=== PATIENT | female | born 1940 | race Caucasian/White ===

== ENCOUNTER 2022-01-04 06:03 | Inpatient (IN) ==
[~2022-01-04 06:03] MED LIST: Buffered Lidocaine 1% SYRIN 1 ml INTRADERM ONE; Lactated Ringers 1000 ml BAG 1,000 ML IV SCH
[2022-01-04] MEDS ORDERED: ceFAZolin 2 GM in NS PREMIX 2 GM/100 ML BAG IVPB ONE (06:22)
[2022-01-04] MEDS ORDERED: Midazolam 2 mg/2 ml VIAL 1 mg/ml 2 ml VIAL (2 mg) ONE (07:02)
[2022-01-04] MEDS ORDERED: fentaNYL 100 mcg/2 ml 50 MCG/ML VIAL ONE ×2 (07:02→14:07)
[2022-01-04] MEDS ORDERED: Bupivacaine 0.25% EPI 200,000 30 ML SDV ONE (07:03)
[2022-01-04] MEDS ORDERED: ceFAZolin VIAL VIAL ONE ×3 (07:03→13:04)
[2022-01-04] MEDS ORDERED: EPHEDrine (Pressors) 50 MG/ML VIAL ONE (07:04)
[2022-01-04] MEDS ORDERED: Sevoflurane BOTTLE ONE (07:04)
[2022-01-04] MEDS ORDERED: Sterile Water for Inj 10 ML ONE (07:04)
[2022-01-04] MEDS ORDERED: Propofol 10 MG/ML 20 ML BTL ONE (07:04)
[2022-01-04] MEDS ORDERED: Phenylephrine 40 mcg/mL 10mL (400mcg) SYRINGE ONE (07:04)
[2022-01-04] MEDS ORDERED: Lidocaine 2% PF 5 ML VIAL ONE (07:04)
[2022-01-04] MEDS ORDERED: Dexamethasone IV 4 MG/ML VIAL 1 ml VIAL ONE (07:04)
[2022-01-04] MEDS ORDERED: Ondansetron 4 mg VIAL 2 MG/ML 2 ml VIAL ONE ×3 (07:04→14:42)
[2022-01-04] MEDS ORDERED: Remifentanil 2 MG VIAL ONE (07:06)
[2022-01-04] MEDS ORDERED: Propofol 10 mg/ml 100 ML BTL 300 ML ONE (07:06)
[2022-01-04] MEDS ORDERED: Succinylcholine 200 mg VIAL 20 mg/ml 10 ml VIAL (200 mg) ONE (07:44)
[2022-01-04] MEDS ORDERED: Ketamine HCL 50 mg/ml 10 ml VIAL (500 MG) ONE (07:48)
[2022-01-04] MEDS ORDERED: Ondansetron 4 mg VIAL 2 MG/ML 2 ml VIAL IV PRN ×2 (07:49→15:57)
[2022-01-04] MEDS ORDERED: Naloxone 0.4 mg VIAL 0.4 mg/ml 1 ml VIAL IV PRN (07:49)
[2022-01-04] MEDS ORDERED: Vancomycin 1,000 MG VIAL ONE (09:36)
[2022-01-04] MEDS ORDERED: HYDROmorphone 0.5 MG/0.5 ML SYRINGE ONE ×3 (10:00→12:34)
[2022-01-04] MEDS: fentaNYL 100 mcg/2 ml 50 MCG/ML VIAL IV PRN ×4 (14:08→14:58)
[2022-01-04] MEDS ORDERED: HYDROmorphone 1 MG/1 ML SYRINGE ONE (14:30)
[2022-01-04] MEDS: HYDROmorphone 1 MG/1 ML SYRINGE IV PRN ×2 (14:39→15:29)
[2022-01-04] MEDS ORDERED: hydrALAZINE 20 mg/ml 1 ML Vial IV ONE (15:26)
[2022-01-04] MEDS: HYDROcodone/ACETAMIN 5/325 mg TAB PO PRN (19:43)
[2022-01-04 23:09] LABS: Urine Appearance Cloudy; Urine Bilirubin Negative (Negative); Urine Blood 1+ (Negative); Urine Color Yellow; Urine Glucose Negative (Negative); Urine Ketones Trace (Negative); Urine Nitrite Negative (Negative); Urine Protein Negative (Negative); Urine Specific Gravity 1.015 (1.002-1.030); Urine Urobilinogen Negative (Negative)
[2022-01-04 23:11] LABS: Urine Bacteria Absent (Absent); Urine Red Blood Cell 1+(3-5/hpf) (Absent); Urine Squamous Epithelial Cell Present (Absent); Urine White Blood Cell Absent (Absent)
[2022-01-05] MEDS: HYDROcodone/ACETAMIN 5/325 mg TAB PO PRN ×5 (01:39→20:44)
[2022-01-05 08:19] LABS: ABS Lymphocytes 1.9 10^3/ul (1.0-4.8); ABS Monocytes 1.1 10^3/ul (0-0.8); ABS Neutrophils 11.1 10^3/ul (1.5-7.7); Eosinophil % 0.2 %; Hematocrit 33 % (35-47); Hemoglobin 11.2 g/dL (12.0-16.0); Lymphocyte % 13.2 %; Mean Corpuscular HGB Conc 34 g/dL (31-36); Mean Corpuscular Hemoglobin 33 pg (27-31); Mean Corpuscular Volume 96 fL (80-97); Mean Platelet Volume 9.2 fL (7.4-10.4); Platelet Count 224 10^3/uL (150-450); Red Blood Count 3.43 10^6 /uL (3.70-4.87); Red Cell Distribution Width 13 % (10-15); White Blood Count 14.2 10^3/uL (3.5-10.8)
[2022-01-05 09:02] LABS: Calcium 9.3 mg/dL (8.6-10.3); Potassium 4.3 mmol/L (3.5-5.0)
[2022-01-06] MEDS: HYDROcodone/ACETAMIN 5/325 mg TAB PO PRN ×5 (02:35→23:00)
[2022-01-06 05:53] LABS: ABS Lymphocytes 2.1 10^3/ul (1.0-4.8); ABS Monocytes 1.4 10^3/ul (0-0.8); ABS Neutrophils 12.6 10^3/ul (1.5-7.7); Eosinophil % 0.2 %; Hematocrit 30 % (35-47); Lymphocyte % 13.1 %; Mean Corpuscular HGB Conc 34 g/dL (31-36); Mean Corpuscular Hemoglobin 32 pg (27-31); Mean Corpuscular Volume 96 fL (80-97); Mean Platelet Volume 8.9 fL (7.4-10.4); Platelet Count 194 10^3/uL (150-450); Red Blood Count 3.09 10^6 /uL (3.70-4.87); Red Cell Distribution Width 13 % (10-15); White Blood Count 16.2 10^3/uL (3.5-10.8)
[2022-01-06 06:54] LABS: Calcium 8.8 mg/dL (8.6-10.3); Potassium 4.5 mmol/L (3.5-5.0); eGFR CKD-EPI 43.8 (>60)
[2022-01-07] MEDS: HYDROcodone/ACETAMIN 5/325 mg TAB PO PRN ×5 (04:16→21:24)
[2022-01-07] MEDS: Morphine 2 MG/ML SYRINGE IV SCH ×2 (14:02→17:20)
[2022-01-07] MEDS ORDERED: Morphine 2 MG/ML SYRINGE IV ONE (17:59)
[2022-01-08] MEDS: HYDROcodone/ACETAMIN 5/325 mg TAB PO PRN ×6 (01:14→21:36)
[2022-01-08 04:52] LABS: ABS Eosinophils 0.3 10^3/ul (0-0.6); ABS Lymphocytes 2.2 10^3/ul (1.0-4.8); ABS Monocytes 0.9 10^3/ul (0-0.8); ABS Neutrophils 8.6 10^3/ul (1.5-7.7); Eosinophil % 2.5 %; Hematocrit 30 % (35-47); Hemoglobin 10.2 g/dL (12.0-16.0); Lymphocyte % 18.4 %; Mean Corpuscular HGB Conc 34 g/dL (31-36); Mean Corpuscular Hemoglobin 33 pg (27-31); Mean Corpuscular Volume 97 fL (80-97); Mean Platelet Volume 8.7 fL (7.4-10.4); Platelet Count 221 10^3/uL (150-450); Red Blood Count 3.15 10^6 /uL (3.70-4.87); Red Cell Distribution Width 14 % (10-15); White Blood Count 12.1 10^3/uL (3.5-10.8)
[2022-01-08] MEDS ORDERED: Polyethylene Glycol 3350 17 GM PACKET PO PRN (20:22)
[2022-01-08] MEDS: Senna TAB 8.6 mg TAB PO PRN (21:36)
[2022-01-09] MEDS: HYDROcodone/ACETAMIN 5/325 mg TAB PO PRN ×5 (01:40→17:44)
[2022-01-09] MEDS: Magnesium Hydroxide LIQ 30 ML UDC PO PRN (09:49)
[2022-01-09] MEDS: Senna TAB 8.6 mg TAB PO PRN (21:57)
[2022-01-10] MEDS ORDERED: HYDROcodone/ACETAMIN 5/325 mg TAB PO PRN (07:38)
[2022-01-10] MEDS: HYDROcodone/ACETAMIN 5/325 mg TAB PO PRN ×2 (08:30→12:24)
[2022-01-10] MEDS: Magnesium Hydroxide LIQ 30 ML UDC PO PRN (08:30)
[2022-01-10 09:33] LABS: ABS Basophils 0.1 10^3/ul (0-0.2); ABS Eosinophils 0.3 10^3/ul (0-0.6); ABS Lymphocytes 1.9 10^3/ul (1.0-4.8); ABS Monocytes 0.9 10^3/ul (0-0.8); ABS Neutrophils 6.2 10^3/ul (1.5-7.7); Eosinophil % 3.5 %; Hematocrit 32 % (35-47); Hemoglobin 10.9 g/dL (12.0-16.0); Lymphocyte % 20.4 %; Mean Corpuscular HGB Conc 34 g/dL (31-36); Mean Corpuscular Hemoglobin 33 pg (27-31); Mean Corpuscular Volume 96 fL (80-97); Mean Platelet Volume 8.1 fL (7.4-10.4); Platelet Count 294 10^3/uL (150-450); Red Blood Count 3.36 10^6 /uL (3.70-4.87); Red Cell Distribution Width 13 % (10-15); White Blood Count 9.5 10^3/uL (3.5-10.8)
[2022-01-10 09:51] LABS: Calcium 9.4 mg/dL (8.6-10.3); Potassium 4.4 mmol/L (3.5-5.0); eGFR CKD-EPI 46.5 (>60)
[2022-01-10 11:33] VITALS: BP 113/67
[2022-01-10 12:10] LABS: Rapid COVID-19 Molecular Undetected (Undetected)
== END 2022-01-10 14:30 | disposition home health service (06) | DRG 473 ==
LOC: INTOOBSV 06:03 → OBSVTOIN 06:03 → AA 06:03 → SSU 16:55
PROVIDERS: ADMIT Neurological Surgery; ATTEND Neurological Surgery

== ENCOUNTER 2022-01-31 14:30 | Inpatient (IN) ==
[2022-01-31 16:29] LABS: ABS Basophils 0.1 10^3/ul (0-0.2); ABS Eosinophils 0.3 10^3/ul (0-0.6); ABS Lymphocytes 1.8 10^3/ul (1.0-4.8); ABS Monocytes 0.8 10^3/ul (0-0.8); ABS Neutrophils 7.5 10^3/ul (1.5-7.7); Eosinophil % 3.1 %; Hematocrit 32 % (35-47); Hemoglobin 10.7 g/dL (12.0-16.0); Lymphocyte % 17.3 %; Mean Corpuscular HGB Conc 34 g/dL (31-36); Mean Corpuscular Hemoglobin 32 pg (27-31); Mean Corpuscular Volume 96 fL (80-97); Mean Platelet Volume 8.3 fL (7.4-10.4); Platelet Count 329 10^3/uL (150-450); Red Blood Count 3.32 10^6 /uL (3.70-4.87); Red Cell Distribution Width 13 % (10-15); White Blood Count 10.6 10^3/uL (3.5-10.8)
[2022-01-31 16:51] LABS: Activated Partial Thrombo Time 28.7 seconds (26.0-38.0); INR 1.01 (0.86-1.15)
[2022-01-31 17:12] LABS: Albumin 3.6 g/dL (3.2-5.2); Albumin/Globulin Ratio 1.4 (1-3); C Reactive Protein 6.17 mg/L (<8.01); Calcium 9.3 mg/dL (8.6-10.3); Globulin 2.6 g/dL (2-4); Potassium 4.5 mmol/L (3.5-5.0); Total Bilirubin 0.3 mg/dL (0.2-1.0); Total Protein 6.2 g/dL (6.4-8.9); eGFR CKD-EPI 29.5 (>60)
[2022-01-31] MEDS ORDERED: HYDROcodone/ACETAMIN 5/325 mg TAB PO ONE (17:55)
[2022-01-31] MEDS ORDERED: Ondansetron 4 mg VIAL 2 MG/ML 2 ml VIAL IV PRN (17:59)
[2022-01-31] MEDS ORDERED: NS 0.9% 1000 ml BAG 1,000 ML IV SCH (18:00)
[2022-01-31] MEDS ORDERED: Morphine 2 MG/ML SYRINGE IV PRN (18:01)
[2022-01-31] MEDS ORDERED: ceFAZolin VIAL 1 GM in NS 0.9% 50 ML 50 ML IVPB ONE (19:00)
[2022-01-31 20:15] LABS: Ferritin 214.8 ng/mL (11-307)
[2022-02-01] MEDS: HYDROcodone/ACETAMIN 5/325 mg TAB PO PRN (00:49)
[2022-02-01] MEDS: ceFAZolin VIAL 1 GM in NS 0.9% 50 ML 50 ML IVPB SCH ×3 (03:22→21:31)
[2022-02-01 07:10] LABS: ABS Basophils 0.1 10^3/ul (0-0.2); ABS Eosinophils 0.4 10^3/ul (0-0.6); ABS Lymphocytes 2.1 10^3/ul (1.0-4.8); ABS Monocytes 0.8 10^3/ul (0-0.8); ABS Neutrophils 5.8 10^3/ul (1.5-7.7); Eosinophil % 4.8 %; Hematocrit 32 % (35-47); Hemoglobin 10.7 g/dL (12.0-16.0); Mean Corpuscular HGB Conc 33 g/dL (31-36); Mean Corpuscular Hemoglobin 32 pg (27-31); Mean Corpuscular Volume 96 fL (80-97); Mean Platelet Volume 8.4 fL (7.4-10.4); Platelet Count 310 10^3/uL (150-450); Red Blood Count 3.32 10^6 /uL (3.70-4.87); Red Cell Distribution Width 13 % (10-15); White Blood Count 9.2 10^3/uL (3.5-10.8)
[2022-02-01 07:31] LABS: Calcium 9.3 mg/dL (8.6-10.3); Potassium 4.6 mmol/L (3.5-5.0); eGFR CKD-EPI 30.7 (>60)
[2022-02-01] MEDS ORDERED: Acetaminophen IV 1 GM/100ML 100 ML IV PRN (08:28)
[2022-02-01] MEDS ORDERED: Morphine 2 MG/ML SYRINGE IV PRN ×3 (08:29→19:57)
[2022-02-01] MEDS ORDERED: Propofol 10 MG/ML 20 ML BTL ONE (13:21)
[2022-02-01] MEDS ORDERED: fentaNYL 100 mcg/2 ml 50 MCG/ML VIAL ONE ×3 (13:21→17:57)
[2022-02-01] MEDS ORDERED: Midazolam 2 mg/2 ml VIAL 1 mg/ml 2 ml VIAL (2 mg) ONE (13:21)
[2022-02-01] MEDS ORDERED: Rocuronium 50 mg VIAL 10 mg/ml 5 ml VIAL (50 mg) ONE (13:21)
[2022-02-01] MEDS ORDERED: Lidocaine 2% PF 5 ML VIAL ONE (13:22)
[2022-02-01] MEDS ORDERED: HYDROcodone/ACETAMIN 5/325 mg TAB PO PRN (13:56)
[2022-02-01] MEDS ORDERED: oxyCODONE/Acetamin 5/325 mg TAB PO PRN (13:56)
[2022-02-01] MEDS ORDERED: Prochlorperazine 5 mg/ml 2 ml VIAL (10 mg) IV PRN (13:56)
[2022-02-01] MEDS ORDERED: Naloxone 0.4 mg VIAL 0.4 mg/ml 1 ml VIAL IV PRN (13:56)
[2022-02-01] MEDS ORDERED: Vancomycin 1,000 MG - ED ONCE IVPB ONE (14:00)
[2022-02-01] MEDS ORDERED: Desflurane 240 ML INH ONE (16:15)
[2022-02-01] MEDS: fentaNYL 100 mcg/2 ml 50 MCG/ML VIAL IV PRN ×4 (17:36→18:19)
[2022-02-01] MEDS ORDERED: HYDROcodone/ACETAMIN 5/325 mg TAB ONE (18:25)
[2022-02-02] MEDS: HYDROcodone/ACETAMIN 5/325 mg TAB PO PRN ×4 (01:49→19:48)
[2022-02-02] MEDS: ceFAZolin VIAL 1 GM in NS 0.9% 50 ML 50 ML IVPB SCH ×3 (03:38→19:41)
[2022-02-02 05:46] LABS: ABS Basophils 0.1 10^3/ul (0-0.2); ABS Eosinophils 0.6 10^3/ul (0-0.6); ABS Lymphocytes 1.8 10^3/ul (1.0-4.8); ABS Monocytes 0.7 10^3/ul (0-0.8); ABS Neutrophils 6.6 10^3/ul (1.5-7.7); Eosinophil % 6.1 %; Hematocrit 28 % (35-47); Hemoglobin 9.5 g/dL (12.0-16.0); Lymphocyte % 18.4 %; Mean Corpuscular HGB Conc 34 g/dL (31-36); Mean Corpuscular Hemoglobin 32 pg (27-31); Mean Corpuscular Volume 96 fL (80-97); Mean Platelet Volume 8.1 fL (7.4-10.4); Platelet Count 256 10^3/uL (150-450); Red Blood Count 2.94 10^6 /uL (3.70-4.87); Red Cell Distribution Width 13 % (10-15); White Blood Count 9.8 10^3/uL (3.5-10.8)
[2022-02-02 06:11] LABS: Calcium 8.7 mg/dL (8.6-10.3); Magnesium 2.2 mg/dL (1.9-2.7); eGFR CKD-EPI 33.9 (>60)
[2022-02-02 06:13] LABS: Potassium 5.3 mmol/L (3.5-5.0)
[2022-02-02] MEDS ORDERED: Polyethylene Glycol 3350 17 GM PACKET PO PRN (09:51)
[2022-02-03] MEDS: HYDROcodone/ACETAMIN 5/325 mg TAB PO PRN ×4 (01:52→20:27)
[2022-02-03] MEDS: ceFAZolin VIAL 1 GM in NS 0.9% 50 ML 50 ML IVPB SCH ×3 (03:19→20:26)
[2022-02-03 05:29] LABS: ABS Basophils 0.1 10^3/ul (0-0.2); ABS Eosinophils 0.7 10^3/ul (0-0.6); ABS Lymphocytes 2.2 10^3/ul (1.0-4.8); ABS Monocytes 0.7 10^3/ul (0-0.8); ABS Neutrophils 5.8 10^3/ul (1.5-7.7); Eosinophil % 7.4 %; Hematocrit 30 % (35-47); Lymphocyte % 23.4 %; Mean Corpuscular HGB Conc 33 g/dL (31-36); Mean Corpuscular Hemoglobin 32 pg (27-31); Mean Corpuscular Volume 96 fL (80-97); Mean Platelet Volume 8.3 fL (7.4-10.4); Platelet Count 256 10^3/uL (150-450); Red Blood Count 3.15 10^6 /uL (3.70-4.87); Red Cell Distribution Width 13 % (10-15); White Blood Count 9.5 10^3/uL (3.5-10.8)
[2022-02-03 06:12] LABS: Calcium 8.9 mg/dL (8.6-10.3); Potassium 4.5 mmol/L (3.5-5.0); eGFR CKD-EPI 39.3 (>60)
[2022-02-03] MEDS: Enoxaparin 40 MG/0.4 ML SYR SUBCUT SCH (09:22)
[2022-02-04] MEDS: HYDROcodone/ACETAMIN 5/325 mg TAB PO PRN ×4 (00:57→20:27)
[2022-02-04] MEDS: ceFAZolin VIAL 1 GM in NS 0.9% 50 ML 50 ML IVPB SCH ×3 (04:22→19:32)
[2022-02-04 05:36] LABS: Hematocrit 30 % (35-47); Hemoglobin 9.6 g/dL (12.0-16.0); Mean Corpuscular HGB Conc 32 g/dL (31-36); Mean Corpuscular Hemoglobin 31 pg (27-31); Mean Corpuscular Volume 96 fL (80-97); Mean Platelet Volume 8.8 fL (7.4-10.4); Platelet Count 249 10^3/uL (150-450); Red Blood Count 3.09 10^6 /uL (3.70-4.87); Red Cell Distribution Width 13 % (10-15); White Blood Count 8.7 10^3/uL (3.5-10.8)
[2022-02-04 05:55] LABS: Calcium 8.5 mg/dL (8.6-10.3); Potassium 4.4 mmol/L (3.5-5.0); eGFR CKD-EPI 50.6 (>60)
[2022-02-04] MEDS: Enoxaparin 40 MG/0.4 ML SYR SUBCUT SCH (09:45)
[2022-02-05] MEDS: ceFAZolin VIAL 1 GM in NS 0.9% 50 ML 50 ML IVPB SCH ×3 (03:22→19:30)
[2022-02-05] MEDS: HYDROcodone/ACETAMIN 5/325 mg TAB PO PRN ×3 (08:24→21:07)
[2022-02-05] MEDS: Enoxaparin 40 MG/0.4 ML SYR SUBCUT SCH (10:46)
[2022-02-06] MEDS: ceFAZolin VIAL 1 GM in NS 0.9% 50 ML 50 ML IVPB SCH ×2 (03:33→10:54)
[2022-02-06] MEDS: HYDROcodone/ACETAMIN 5/325 mg TAB PO PRN ×3 (03:39→12:25)
[2022-02-06] MEDS: Enoxaparin 40 MG/0.4 ML SYR SUBCUT SCH (08:23)
[2022-02-06 11:24] VITALS: BP 146/83
== END 2022-02-06 12:32 | disposition home health service (06) | DRG 908 ==
LOC: ED 14:30 → EDHOLD 17:58 → SUATTDRO 17:58 → MEDTELE 21:00 → SSU 02-01 18:49
PROVIDERS: ADMIT Hospitalist; ATTEND Internal Medicine
PROC: O.NEI&D (2022-02-01 13:15)

== ENCOUNTER 2023-11-17 07:03 | Inpatient (IN) ==
[2023-11-17] MEDS: Lactated Ringers 1000 ml BAG 1,000 ML IV SCH (07:30)
[2023-11-17] MEDS: Ondansetron 4 mg VIAL 2 MG/ML 2 ml VIAL IV ONE (08:25)
[2023-11-17 08:28] LABS: Hematocrit 29.8 % (35-45); Hemoglobin 9.7 g/dL (11.5-14.3); Mean Corpuscular Hgb Conc 32.5 g/dL (31-36); Mean Corpuscular Volume 98.5 fL (80-97); Mean Platelet Volume 7.9 fL (7.5-11.2); Platelet Count 623 10^3/uL (150-450); Red Blood Count 3.03 10^6/uL (3.63-4.92); Red Cell Distribution Width 15.3 % (12-17); White Blood Count 64.6 10^3/uL (3.8-11.8)
[2023-11-17 08:28] LABS: INR 1.26 (0.83-1.13)
[2023-11-17 08:32] LABS: Urine Appearance Extra Turbid; Urine Bilirubin Negative (Negative); Urine Blood Trace (Negative); Urine Glucose Negative (Negative); Urine Ketones Negative (Negative); Urine Nitrite Negative (Negative); Urine Protein 1+ (>=30 mg/dL) (Negative); Urine Specific Gravity 1.026 (1.002-1.030); Urine Urobilinogen Negative (Negative)
[2023-11-17 08:35] LABS: ALT 6 U/L (7-52); AST 17 U/L (13-39); Albumin 2.9 g/dL (3.2-5.2); Albumin/Globulin Ratio 0.7 (1-3); Alkaline Phosphatase 256 U/L (35-149); Anion Gap 19 mmol/L (2-16); Blood Urea Nitrogen 73 mg/dL (6-24); CO2 Carbon Dioxide 16 mmol/L (22-32); Calcium 9.3 mg/dL (8.6-10.3); Chloride 97 mmol/L (101-111); Creatinine, Serum 5.11 mg/dL (0.51-0.95); Globulin 4.1 g/dL (2-4); Glucose 110 mg/dL (70-100); Lipase < 10 U/L (11.0-82.0); Magnesium 2.1 mg/dL (1.9-2.7); Phosphorus 5.4 mg/dL (2.5-5.0); Potassium 4.9 mmol/L (3.5-5.0); Sodium 132 mmol/L (135-145); Total Bilirubin 0.6 mg/dL (0.2-1.0)
[2023-11-17 08:41] LABS: High Sens Troponin Baseline 61 pg/mL (<15)
[2023-11-17 08:57] LABS: Urine Bacteria Absent /HPF (Absent); Urine Red Blood Cell Trace(0-2/hpf) /HPF (0-Trace); Urine White Blood Cell 3+(>20/hpf) /HPF (0-Trace)
[2023-11-17] MEDS: cefTRIAXone 1 gm/50 mL D5W 1 GM/50 ML BAG IV ONE (09:08)
[2023-11-17 09:27] LABS: ABS Lymphocytes 1.4 10^3/uL (1.0-4.8); ABS Monocytes 0.5 10^3/uL (0.0-0.9); ABS Neutrophils 62.6 10^3/uL (1.5-7.6); Lymphocyte % 2.1 %
[2023-11-17 09:34] LABS: Urine Color Light-Yellow
[2023-11-17] MEDS: NS 0.9% 1000 ml BAG 1,000 ML IV ONE (09:57)
[2023-11-17 10:39] LABS: C Reactive Protein 527.53 mg/L (<8.01)
[2023-11-17 10:49] LABS: Albumin 2.6 g/dL (3.2-5.2); Albumin/Globulin Ratio 0.8 (1-3); Calcium 8.6 mg/dL (8.6-10.3); Creatinine, Serum 4.64 mg/dL (0.51-0.95); Globulin 3.4 g/dL (2-4); Potassium 5.4 mmol/L (3.5-5.0); Total Bilirubin 0.5 mg/dL (0.2-1.0)
[2023-11-17] MEDS: HYDROmorphone 0.5 MG/0.5 ML SYRINGE IV SLOW PU ONE (11:15)
[2023-11-17] MEDS: Lactated Ringers 1000 ml BAG 1,000 ML IV ONE (13:04)
[2023-11-17 13:50] LABS: Urine Appearance Extra Turbid; Urine Bilirubin Negative (Negative); Urine Blood 3+ (Negative); Urine Glucose Negative (Negative); Urine Ketones Negative (Negative); Urine Nitrite Negative (Negative); Urine Protein 2+ (>=100 mg/dL) (Negative); Urine Specific Gravity 1.017 (1.002-1.030); Urine Urobilinogen Negative (Negative); Urine pH 5.5 (5.0-8.0)
[2023-11-17 13:51] LABS: Urine Bacteria 2+ /HPF (Absent); Urine Red Blood Cell 3+(>10/hpf) /HPF (0-Trace); Urine White Blood Cell 3+(>20/hpf) /HPF (0-Trace)
[2023-11-17 13:54] LABS: Urine Color Straw
[2023-11-17 15:57] LABS: INR 1.3 (0.83-1.13)
[2023-11-17] MEDS: Remdesivir 100 mg Vial 200 MG in NS 0.9% 250 ml 210 ML IV ONE (16:06)
[2023-11-17 16:13] LABS: Calcium 8.2 mg/dL (8.6-10.3); Creatinine, Serum 4.2 mg/dL (0.51-0.95); Potassium 5.5 mmol/L (3.5-5.0); eGFR CKD-EPI 10.1 (>60)
[2023-11-17] MEDS: Enoxaparin 30 MG/0.3 ML SYR SUBCUT SCH (16:29)
[2023-11-17] MEDS: SODIUM ZIRCONIUM CYCLOSILICATE 10 GM PACKET PO SCH (21:47)
[2023-11-17] MEDS: HYDROcodone/ACETAMIN 5/325 mg TAB PO PRN (22:04)
[2023-11-17 23:13] LABS: Calcium 8.2 mg/dL (8.6-10.3); Creatinine, Serum 3.73 mg/dL (0.51-0.95); Potassium 4.9 mmol/L (3.5-5.0); eGFR CKD-EPI 11.7 (>60)
[2023-11-18] MEDS: Acetaminophen IV 1 GM/100ML 1,000 MG/100 ML BAG IV PRN (03:16)
[2023-11-18 05:56] LABS: Hematocrit 22.1 % (35-45); Hemoglobin 7.4 g/dL (11.5-14.3); Mean Corpuscular Hgb Conc 33.5 g/dL (31-36); Mean Corpuscular Volume 95.6 fL (80-97); Mean Platelet Volume 7.4 fL (7.5-11.2); Platelet Count 452 10^3/uL (150-450); Red Blood Count 2.32 10^6/uL (3.63-4.92); Red Cell Distribution Width 14.8 % (12-17); White Blood Count 42.8 10^3/uL (3.8-11.8)
[2023-11-18 05:58] LABS: INR 1.29 (0.83-1.13)
[2023-11-18 06:11] LABS: Albumin 2.2 g/dL (3.2-5.2); Albumin/Globulin Ratio 0.8 (1-3); Creatinine, Serum 3.42 mg/dL (0.51-0.95); Globulin 2.9 g/dL (2-4); Potassium 4.6 mmol/L (3.5-5.0); Total Bilirubin 0.3 mg/dL (0.2-1.0); Total Protein 5.1 g/dL (6.4-8.9); eGFR CKD-EPI 12.9 (>60)
[2023-11-18 06:39] LABS: ABS Eosinophils 0.1 10^3/uL (0.0-0.5); ABS Lymphocytes 1.4 10^3/uL (1.0-4.8); ABS Monocytes 0.9 10^3/uL (0.0-0.9); ABS Neutrophils 40.4 10^3/uL (1.5-7.6); ABS Nucleated RBC 0.02 10^3/ul; Eosinophil % 0.1 %; Lymphocyte % 3.2 %; RBC Morphology Normal (Normal)
[2023-11-18] MEDS ORDERED: cefTRIAXone 1 gm/50 mL D5W 1 GM/50 ML BAG IV SCH (09:00)
[2023-11-18] MEDS: cefTRIAXone 1 gm/50 mL D5W 1 GM/50 ML BAG IV SCH (09:50)
[2023-11-18] MEDS: Polyethylene Glycol 3350 17 GM PACKET PO PRN (10:11)
[2023-11-18] MEDS: Ondansetron 4 mg VIAL 2 MG/ML 2 ml VIAL IV PRN (10:11)
[2023-11-18 14:50] LABS: LDH 134 U/L (140-271)
[2023-11-18 15:36] LABS: % Iron Saturation 19 % (15-55); .Transferrin < 75 mg/dL (203-362); Iron < 20 ug/dL (50-212); Total Iron Binding Capacity 105 mcg/dL (250-450); Unsaturated Iron Binding 85 ug/dL
[2023-11-18 15:51] LABS: Ferritin 815.8 ng/mL (11-307)
[2023-11-18 15:55] LABS: Folate 4.12 ng/mL (5.90-24.80)
[2023-11-18 15:56] LABS: Vitamin B12 481 pg/mL (180-914)
[2023-11-18] MEDS: Lactated Ringers 1000 ml BAG 1,000 ML IV ONE (15:56)
[2023-11-18] MEDS: Remdesivir 100 mg Vial 100 MG in NS 0.9% 250 ml 230 ML IV SCH (20:33)
[2023-11-18] MEDS: Zinc Oxide 16% PASTE (Butt Paste) 30 gm TUBE TOPICAL SCH (20:43)
[2023-11-19 06:08] LABS: Hematocrit 23.6 % (35-45); Hemoglobin 7.9 g/dL (11.5-14.3); Mean Corpuscular Hemoglobin 32.3 pg (27-33); Mean Corpuscular Hgb Conc 33.5 g/dL (31-36); Mean Corpuscular Volume 96.5 fL (80-97); Mean Platelet Volume 7.4 fL (7.5-11.2); Platelet Count 448 10^3/uL (150-450); Red Blood Count 2.45 10^6/uL (3.63-4.92); White Blood Count 25.7 10^3/uL (3.8-11.8)
[2023-11-19 06:14] LABS: INR 1.25 (0.83-1.13)
[2023-11-19 07:58] LABS: ABS Eosinophils 0.2 10^3/uL (0.0-0.5); ABS Lymphocytes 2.1 10^3/uL (1.0-4.8); ABS Monocytes 0.7 10^3/uL (0.0-0.9); ABS Neutrophils 22.7 10^3/uL (1.5-7.6); ABS Nucleated RBC 0.01 10^3/ul; Eosinophil % 0.8 %; Lymphocyte % 8.1 %; RBC Morphology Normal (Normal)
[2023-11-19 08:01] LABS: ALT 6 U/L (7-52); AST 22 U/L (13-39); Anion Gap 10 mmol/L (2-16); Blood Urea Nitrogen 76 mg/dL (6-24); CO2 Carbon Dioxide 24 mmol/L (22-32); Calcium 7.9 mg/dL (8.6-10.3); Chloride 103 mmol/L (101-111); Creatinine, Serum 2.78 mg/dL (0.51-0.95); Glucose 91 mg/dL (70-100); Potassium 4.2 mmol/L (3.5-5.0); Sodium 137 mmol/L (135-145); eGFR CKD-EPI 16.6 (>60)
[2023-11-19 08:02] LABS: Albumin 2.2 g/dL (3.2-5.2); Albumin/Globulin Ratio 0.8 (1-3); Alkaline Phosphatase 323 U/L (35-149); Globulin 2.9 g/dL (2-4); Total Bilirubin 0.3 mg/dL (0.2-1.0); Total Protein 5.1 g/dL (6.4-8.9)
[2023-11-19] MEDS ORDERED: Warfarin per PHARMACY **NOTE FOLLOW UP SCH (13:00)
[2023-11-19] MEDS: Enoxaparin 30 MG/0.3 ML SYR SUBCUT SCH (14:31)
[2023-11-19] MEDS: HYDROmorphone 0.5 MG/0.5 ML SYRINGE IV SLOW PU PRN (21:10)
[2023-11-19] MEDS: Senna TAB 8.6 mg TAB PO PRN (21:11)
[2023-11-20 05:37] LABS: INR 1.28 (0.83-1.13)
[2023-11-20 05:38] LABS: Hematocrit 23.1 % (35-45); Hemoglobin 7.6 g/dL (11.5-14.3); Mean Corpuscular Hemoglobin 31.3 pg (27-33); Mean Corpuscular Volume 94.9 fL (80-97); Mean Platelet Volume 7.5 fL (7.5-11.2); Platelet Count 398 10^3/uL (150-450); Red Blood Count 2.43 10^6/uL (3.63-4.92); White Blood Count 24.3 10^3/uL (3.8-11.8)
[2023-11-20 05:55] LABS: Albumin 2.1 g/dL (3.2-5.2); Albumin/Globulin Ratio 0.7 (1-3); Creatinine, Serum 1.9 mg/dL (0.51-0.95); Globulin 2.9 g/dL (2-4); Phosphorus 3.2 mg/dL (2.5-5.0); Potassium 4.1 mmol/L (3.5-5.0); Total Bilirubin 0.3 mg/dL (0.2-1.0); eGFR CKD-EPI 26.2 (>60)
[2023-11-20 06:29] LABS: ABS Eosinophils 0.2 10^3/uL (0.0-0.5); ABS Lymphocytes 2.2 10^3/uL (1.0-4.8); ABS Monocytes 1.3 10^3/uL (0.0-0.9); ABS Neutrophils 20.6 10^3/uL (1.5-7.6); ABS Nucleated RBC 0.03 10^3/ul; Eosinophil % 0.8 %; Lymphocyte % 9.2 %; Nucleated Red Blood Cells % 0.1 %/100WBC (0.0-0.8)
[2023-11-20 10:18] LABS: Immature Retic Fraction 0.44
[2023-11-20 10:23] LABS: Corrected Retic Count 0.7 % (0.5-2.2); Hematocrit for Retic CNT 23.1 % (35-45); RBC Retic Count 2.43 10^6/ul (3.63-4.92)
[2023-11-21 06:41] LABS: INR 1.28 (0.83-1.13)
[2023-11-21 06:42] LABS: Hematocrit 23.4 % (35-45); Hemoglobin 7.7 g/dL (11.5-14.3); Mean Corpuscular Hemoglobin 31.7 pg (27-33); Mean Corpuscular Volume 96.1 fL (80-97); Mean Platelet Volume 7.3 fL (7.5-11.2); Platelet Count 381 10^3/uL (150-450); Red Blood Count 2.43 10^6/uL (3.63-4.92); Red Cell Distribution Width 14.9 % (12-17); White Blood Count 38.8 10^3/uL (3.8-11.8)
[2023-11-21 06:53] LABS: Albumin 2.1 g/dL (3.2-5.2); Albumin/Globulin Ratio 0.7 (1-3); Calcium 7.9 mg/dL (8.6-10.3); Globulin 2.9 g/dL (2-4); Magnesium 1.9 mg/dL (1.9-2.7); Phosphorus 2.9 mg/dL (2.5-5.0); Potassium 4.2 mmol/L (3.5-5.0); Total Bilirubin 0.5 mg/dL (0.2-1.0); eGFR CKD-EPI 24.6 (>60)
[2023-11-21 08:37] LABS: ABS Eosinophils 0.1 10^3/uL (0.0-0.5); ABS Lymphocytes 2.2 10^3/uL (1.0-4.8); ABS Monocytes 1.4 10^3/uL (0.0-0.9); ABS Neutrophils 35.1 10^3/uL (1.5-7.6); ABS Nucleated RBC 0.01 10^3/ul; Eosinophil % 0.2 %; Lymphocyte % 5.6 %
[2023-11-21 13:16] LABS: C Reactive Protein 211.45 mg/L (<8.01)
[2023-11-22 07:58] LABS: INR 1.26 (0.83-1.13)
[2023-11-22 08:07] LABS: Albumin/Globulin Ratio 0.7 (1-3); Calcium 7.9 mg/dL (8.6-10.3); Creatinine, Serum 2.14 mg/dL (0.51-0.95); Globulin 2.9 g/dL (2-4); Magnesium 1.9 mg/dL (1.9-2.7); Phosphorus 3.2 mg/dL (2.5-5.0); Potassium 4.5 mmol/L (3.5-5.0); Total Bilirubin 0.4 mg/dL (0.2-1.0); Total Protein 4.9 g/dL (6.4-8.9); eGFR CKD-EPI 22.7 (>60)
[2023-11-22 08:25] LABS: Hematocrit 23.3 % (35-45); Hemoglobin 7.4 g/dL (11.5-14.3); Mean Corpuscular Hemoglobin 31.2 pg (27-33); Mean Corpuscular Hgb Conc 31.6 g/dL (31-36); Mean Corpuscular Volume 98.7 fL (80-97); Mean Platelet Volume 7.6 fL (7.5-11.2); Platelet Count 403 10^3/uL (150-450); Red Blood Count 2.36 10^6/uL (3.63-4.92); Red Cell Distribution Width 15.4 % (12-17); White Blood Count 38.7 10^3/uL (3.8-11.8)
[2023-11-22 08:57] LABS: ABS Eosinophils 0.2 10^3/uL (0.0-0.5); ABS Lymphocytes 2.4 10^3/uL (1.0-4.8); ABS Monocytes 1.9 10^3/uL (0.0-0.9); ABS Neutrophils 34.2 10^3/uL (1.5-7.6); ABS Nucleated RBC 0.01 10^3/ul; Eosinophil % 0.6 %; Lymphocyte % 6.1 %
[2023-11-22 18:37] LABS: Urine Appearance Turbid; Urine Color Light-Red; Urine Specific Gravity 1.015 (1.002-1.030)
[2023-11-22 18:40] LABS: Urine Bacteria 1+ /HPF (Absent); Urine Red Blood Cell 3+(>10/hpf) /HPF (0-Trace); Urine White Blood Cell 3+(>20/hpf) /HPF (0-Trace)
[2023-11-22] MEDS: Magnesium Hydroxide LIQ 30 ML UDC PO PRN (20:08)
[2023-11-23 06:58] LABS: Hematocrit 24.2 % (35-45); Hemoglobin 7.8 g/dL (11.5-14.3); Mean Corpuscular Hemoglobin 31.5 pg (27-33); Mean Corpuscular Hgb Conc 32.3 g/dL (31-36); Mean Corpuscular Volume 97.5 fL (80-97); Mean Platelet Volume 7.8 fL (7.5-11.2); Platelet Count 405 10^3/uL (150-450); Red Blood Count 2.48 10^6/uL (3.63-4.92); Red Cell Distribution Width 15.2 % (12-17); White Blood Count 31.5 10^3/uL (3.8-11.8)
[2023-11-23 07:16] LABS: Calcium 8.2 mg/dL (8.6-10.3); Creatinine, Serum 1.64 mg/dL (0.51-0.95); Magnesium 2.2 mg/dL (1.9-2.7); Phosphorus 3.1 mg/dL (2.5-5.0); eGFR CKD-EPI 31.3 (>60)
[2023-11-23 07:50] LABS: ABS Eosinophils 0.2 10^3/uL (0.0-0.5); ABS Lymphocytes 2.9 10^3/uL (1.0-4.8); ABS Monocytes 1.2 10^3/uL (0.0-0.9); ABS Neutrophils 27.1 10^3/uL (1.5-7.6); Eosinophil % 0.7 %; Lymphocyte % 9.3 %
[2023-11-23] MEDS: SORBITOL PO ONE (13:12)
[2023-11-23] MEDS: CHARCOAL ACTIVATED PO ONE (13:12)
[2023-11-23 17:04] LABS: BCR/ABL PCR Specimen WHOLE BLOOD EDTA; BCR/ABL p210 Result see interpretation
[2023-11-24 07:48] LABS: Hematocrit 21.2 % (35-45); Hemoglobin 6.9 g/dL (11.5-14.3); Mean Corpuscular Hemoglobin 31.6 pg (27-33); Mean Corpuscular Hgb Conc 32.7 g/dL (31-36); Mean Corpuscular Volume 96.4 fL (80-97); Mean Platelet Volume 7.8 fL (7.5-11.2); Platelet Count 370 10^3/uL (150-450); Red Cell Distribution Width 14.9 % (12-17); White Blood Count 20.2 10^3/uL (3.8-11.8)
[2023-11-24 08:06] LABS: Albumin 1.8 g/dL (3.2-5.2); Albumin/Globulin Ratio 0.6 (1-3); Calcium 7.5 mg/dL (8.6-10.3); Creatinine, Serum 1.2 mg/dL (0.51-0.95); Globulin 2.9 g/dL (2-4); Magnesium 2.1 mg/dL (1.9-2.7); Phosphorus 2.9 mg/dL (2.5-5.0); Potassium 4.3 mmol/L (3.5-5.0); Total Bilirubin 0.5 mg/dL (0.2-1.0); Total Protein 4.7 g/dL (6.4-8.9); eGFR CKD-EPI 45.5 (>60)
[2023-11-24 09:04] LABS: ABS Eosinophils 0.3 10^3/uL (0.0-0.5); ABS Lymphocytes 2.6 10^3/uL (1.0-4.8); ABS Monocytes 1.3 10^3/uL (0.0-0.9); ABS Neutrophils 15.9 10^3/uL (1.5-7.6); ABS Nucleated RBC 0.01 10^3/ul; Eosinophil % 1.6 %; Lymphocyte % 13.1 %; Nucleated Red Blood Cells % 0.1 %/100WBC (0.0-0.8)
[2023-11-24] MEDS ORDERED: Zosyn per Pharmacy NOTE FOLLOW UP SCH (11:00)
[2023-11-24] MEDS ORDERED: Gentamicin ADULT per pharmacy 1 NOTE MISC FOLLOW UP PRN (11:06)
[2023-11-24] MEDS: ZOSYN 3.375 GM x ONE DOSE over 30 miuntes IV (13:18)
[2023-11-24 14:55] LABS: Urine Appearance Extra Turbid; Urine Bilirubin Negative (Negative); Urine Blood 3+ (Negative); Urine Glucose Negative (Negative); Urine Ketones Negative (Negative); Urine Nitrite Negative (Negative); Urine Protein 1+ (>=30 mg/dL) (Negative); Urine Specific Gravity 1.012 (1.002-1.030); Urine Urobilinogen Negative (Negative); Urine pH 5.5 (5.0-8.0)
[2023-11-24 15:01] LABS: Urine Bacteria Absent /HPF (Absent); Urine Color Yellow; Urine Red Blood Cell 3+(>10/hpf) /HPF (0-Trace); Urine White Blood Cell 3+(>20/hpf) /HPF (0-Trace)
[2023-11-24] MEDS: Gentamicin ADULT 380 MG in NS 0.9% 100 ml BAG 100 ML IVPB ONE (16:56)
[2023-11-24] MEDS: ZOSYN 3.375 GM Q8H per EXTENDED INFUSION IV SCH (17:49)
[2023-11-24] MEDS: HYDROcodone/ACETAMIN 5/325 mg TAB PO PRN (20:32)
[2023-11-24 21:45] LABS: Hematocrit 23.2 % (35-45); Hemoglobin 7.8 g/dL (11.5-14.3)
[2023-11-25 06:15] LABS: Hematocrit 24.4 % (35-45); Hemoglobin 7.9 g/dL (11.5-14.3); Mean Corpuscular Hgb Conc 32.3 g/dL (31-36); Mean Platelet Volume 7.4 fL (7.5-11.2); Platelet Count 408 10^3/uL (150-450); Red Blood Count 2.47 10^6/uL (3.63-4.92); Red Cell Distribution Width 16.1 % (12-17); White Blood Count 18.6 10^3/uL (3.8-11.8)
[2023-11-25 06:34] LABS: ABS Eosinophils 0.2 10^3/uL (0.0-0.5); ABS Lymphocytes 2.8 10^3/uL (1.0-4.8); ABS Monocytes 1.1 10^3/uL (0.0-0.9); ABS Neutrophils 14.5 10^3/uL (1.5-7.6); ABS Nucleated RBC 0.01 10^3/ul; Eosinophil % 1.3 %; Lymphocyte % 15.1 %
[2023-11-25 12:05] LABS: Albumin 1.8 g/dL (3.2-5.2); Albumin/Globulin Ratio 0.6 (1-3); Calcium 7.3 mg/dL (8.6-10.3); Creatinine, Serum 1.25 mg/dL (0.51-0.95); Potassium 4.3 mmol/L (3.5-5.0); Total Bilirubin 0.7 mg/dL (0.2-1.0); Total Protein 4.8 g/dL (6.4-8.9); eGFR CKD-EPI 43.3 (>60)
[2023-11-26 06:51] LABS: ABS Basophils 0.1 10^3/uL (0.0-0.1); ABS Eosinophils 0.1 10^3/uL (0.0-0.5); ABS Lymphocytes 2.2 10^3/uL (1.0-4.8); ABS Monocytes 1.6 10^3/uL (0.0-0.9); ABS Neutrophils 41.4 10^3/uL (1.5-7.6); Eosinophil % 0.2 %; Hematocrit 24.3 % (35-45); Hemoglobin 7.8 g/dL (11.5-14.3); Lymphocyte % 4.8 %; Mean Corpuscular Hemoglobin 31.2 pg (27-33); Mean Corpuscular Hgb Conc 32.3 g/dL (31-36); Mean Corpuscular Volume 96.4 fL (80-97); Mean Platelet Volume 7.6 fL (7.5-11.2); Platelet Count 456 10^3/uL (150-450); Red Blood Count 2.52 10^6/uL (3.63-4.92); White Blood Count 45.2 10^3/uL (3.8-11.8)
[2023-11-26 07:08] LABS: Albumin 1.9 g/dL (3.2-5.2); Albumin/Globulin Ratio 0.6 (1-3); Calcium 7.2 mg/dL (8.6-10.3); Creatinine, Serum 1.66 mg/dL (0.51-0.95); Globulin 3.1 g/dL (2-4); Total Bilirubin 0.9 mg/dL (0.2-1.0); eGFR CKD-EPI 30.8 (>60)
[2023-11-26 07:54] LABS: Potassium 4.3 mmol/L (3.5-5.0)
[2023-11-26] MEDS: Polyethylene Glycol 3350 17 GM PACKET PO SCH (08:55)
[2023-11-26] MEDS ORDERED: Rocuronium 50 mg VIAL 10 mg/ml 5 ml VIAL (50 mg) ONE (14:34)
[2023-11-26] MEDS ORDERED: fentaNYL 100 mcg/2 ml 50 MCG/ML VIAL ONE (14:35)
[2023-11-26] MEDS ORDERED: Propofol 10 MG/ML 20 ML BTL ONE (14:36)
[2023-11-26] MEDS ORDERED: Lidocaine 2% PF 5 ML VIAL ONE (14:36)
[2023-11-26] MEDS ORDERED: Lidocaine 2% JELLY 10 ML JELLY ONE (14:57)
[2023-11-27 05:25] LABS: Hematocrit 20.7 % (35-45); Hemoglobin 6.8 g/dL (11.5-14.3); Mean Corpuscular Hemoglobin 31.8 pg (27-33); Mean Corpuscular Volume 96.5 fL (80-97); Mean Platelet Volume 7.6 fL (7.5-11.2); Platelet Count 444 10^3/uL (150-450); Red Blood Count 2.14 10^6/uL (3.63-4.92); Red Cell Distribution Width 15.2 % (12-17); White Blood Count 27.3 10^3/uL (3.8-11.8)
[2023-11-27 05:53] LABS: Calcium 7.2 mg/dL (8.6-10.3); Creatinine, Serum 2.03 mg/dL (0.51-0.95); Magnesium 1.9 mg/dL (1.9-2.7); Potassium 4.7 mmol/L (3.5-5.0); eGFR CKD-EPI 24.2 (>60)
[2023-11-27 17:47] LABS: Hematocrit 26.3 % (35-45); Hemoglobin 8.7 g/dL (11.5-14.3)
[2023-11-27 20:58] LABS: Hematocrit 25.4 % (35-45); Hemoglobin 8.3 g/dL (11.5-14.3)
[2023-11-28 06:31] LABS: Calcium 7.1 mg/dL (8.6-10.3); Creatinine, Serum 1.94 mg/dL (0.51-0.95); Magnesium 1.9 mg/dL (1.9-2.7); Phosphorus 3.9 mg/dL (2.5-5.0); Potassium 4.4 mmol/L (3.5-5.0); eGFR CKD-EPI 25.6 (>60)
[2023-11-28 11:55] LABS: Hematocrit 22.5 % (35-45); Hemoglobin 7.4 g/dL (11.5-14.3); Mean Corpuscular Hgb Conc 33.1 g/dL (31-36); Mean Corpuscular Volume 96.5 fL (80-97); Mean Platelet Volume 8.5 fL (7.5-11.2); Platelet Count 495 10^3/uL (150-450); Red Blood Count 2.33 10^6/uL (3.63-4.92); Red Cell Distribution Width 15.2 % (12-17); White Blood Count 19.9 10^3/uL (3.8-11.8)
[2023-11-28 12:49] LABS: ABS Eosinophils 0.3 10^3/uL (0.0-0.5); ABS Lymphocytes 2.2 10^3/uL (1.0-4.8); ABS Monocytes 1.3 10^3/uL (0.0-0.9); ABS Nucleated RBC 0.03 10^3/ul; Eosinophil % 1.7 %; Lymphocyte % 11.2 %; Nucleated Red Blood Cells % 0.1 %/100WBC (0.0-0.8)
[2023-11-28 20:39] LABS: Hematocrit 23.4 % (35-45); Hemoglobin 7.6 g/dL (11.5-14.3)
[2023-11-29 06:13] LABS: ABS Basophils 0.1 10^3/uL (0.0-0.1); ABS Eosinophils 0.3 10^3/uL (0.0-0.5); ABS Lymphocytes 2.4 10^3/uL (1.0-4.8); ABS Monocytes 1.3 10^3/uL (0.0-0.9); ABS Neutrophils 12.3 10^3/uL (1.5-7.6); Eosinophil % 1.6 %; Hematocrit 21.9 % (35-45); Hemoglobin 7.4 g/dL (11.5-14.3); Lymphocyte % 14.7 %; Mean Corpuscular Hemoglobin 32.5 pg (27-33); Mean Corpuscular Hgb Conc 33.7 g/dL (31-36); Mean Corpuscular Volume 96.4 fL (80-97); Mean Platelet Volume 7.7 fL (7.5-11.2); Platelet Count 544 10^3/uL (150-450); Red Blood Count 2.28 10^6/uL (3.63-4.92); Red Cell Distribution Width 14.9 % (12-17); White Blood Count 16.4 10^3/uL (3.8-11.8)
[2023-11-29 06:32] LABS: Calcium 7.2 mg/dL (8.6-10.3); Creatinine, Serum 1.69 mg/dL (0.51-0.95); Magnesium 1.9 mg/dL (1.9-2.7); Potassium 4.4 mmol/L (3.5-5.0); eGFR CKD-EPI 30.2 (>60)
[2023-11-29] MEDS ORDERED: Pantoprazole 80 mg in NS BAG 80 MG/250 ML BAG IV SCH (11:00)
[2023-11-29] MEDS: Pantoprazole VIAL 40 MG VIAL IV SCH (11:51)
[2023-11-29] MEDS ORDERED: Lidocaine 2% PF 5 ML VIAL ONE (14:25)
[2023-11-29] MEDS ORDERED: Propofol 10 MG/ML 20 ML BTL ONE (14:25)
[2023-11-30 08:56] LABS: ABS Basophils 0.1 10^3/uL (0.0-0.1); ABS Eosinophils 0.2 10^3/uL (0.0-0.5); ABS Monocytes 1.1 10^3/uL (0.0-0.9); ABS Neutrophils 15.9 10^3/uL (1.5-7.6); Hematocrit 24.2 % (35-45); Lymphocyte % 10.3 %; Mean Corpuscular Hemoglobin 32.4 pg (27-33); Mean Corpuscular Hgb Conc 33.1 g/dL (31-36); Mean Corpuscular Volume 97.9 fL (80-97); Mean Platelet Volume 7.5 fL (7.5-11.2); Platelet Count 579 10^3/uL (150-450); Red Blood Count 2.47 10^6/uL (3.63-4.92); Red Cell Distribution Width 14.8 % (12-17); White Blood Count 19.2 10^3/uL (3.8-11.8)
[2023-11-30 09:31] LABS: Calcium 7.6 mg/dL (8.6-10.3); Creatinine, Serum 1.65 mg/dL (0.51-0.95); Potassium 5.1 mmol/L (3.5-5.0)
[2023-12-01 07:43] LABS: Albumin 1.7 g/dL (3.2-5.2); Albumin/Globulin Ratio 0.6 (1-3); Calcium 7.4 mg/dL (8.6-10.3); Creatinine, Serum 1.54 mg/dL (0.51-0.95); Magnesium 1.9 mg/dL (1.9-2.7); Potassium 4.8 mmol/L (3.5-5.0); Total Bilirubin 0.3 mg/dL (0.2-1.0); Total Protein 4.7 g/dL (6.4-8.9); eGFR CKD-EPI 33.7 (>60)
[2023-12-01 08:30] LABS: ABS Basophils 0.1 10^3/uL (0.0-0.1); ABS Eosinophils 0.3 10^3/uL (0.0-0.5); ABS Lymphocytes 2.3 10^3/uL (1.0-4.8); ABS Monocytes 0.9 10^3/uL (0.0-0.9); ABS Neutrophils 9.1 10^3/uL (1.5-7.6); ABS Nucleated RBC 0.01 10^3/ul; Eosinophil % 2.6 %; Hematocrit 24.8 % (35-45); Hemoglobin 7.9 g/dL (11.5-14.3); Lymphocyte % 17.9 %; Mean Corpuscular Hemoglobin 32.3 pg (27-33); Mean Platelet Volume 7.5 fL (7.5-11.2); Nucleated Red Blood Cells % 0.1 %/100WBC (0.0-0.8); Platelet Count 537 10^3/uL (150-450); Red Blood Count 2.45 10^6/uL (3.63-4.92); Red Cell Distribution Width 15.6 % (12-17); White Blood Count 12.7 10^3/uL (3.8-11.8)
[2023-12-02 12:08] LABS: Hematocrit 23.7 % (35-45); Hemoglobin 7.5 g/dL (11.5-14.3); Mean Corpuscular Hemoglobin 31.8 pg (27-33); Mean Corpuscular Hgb Conc 31.7 g/dL (31-36); Mean Corpuscular Volume 100.1 fL (80-97); Mean Platelet Volume 7.8 fL (7.5-11.2); Platelet Count 586 10^3/uL (150-450); Red Blood Count 2.37 10^6/uL (3.63-4.92); Red Cell Distribution Width 15.6 % (12-17); White Blood Count 15.1 10^3/uL (3.8-11.8)
[2023-12-03 06:23] LABS: ABS Basophils 0.1 10^3/uL (0.0-0.1); ABS Eosinophils 0.3 10^3/uL (0.0-0.5); ABS Lymphocytes 2.7 10^3/uL (1.0-4.8); ABS Neutrophils 9.3 10^3/uL (1.5-7.6); ABS Nucleated RBC 0.01 10^3/ul; Eosinophil % 2.5 %; Hematocrit 22.4 % (35-45); Hemoglobin 7.3 g/dL (11.5-14.3); Lymphocyte % 20.1 %; Mean Corpuscular Hemoglobin 32.1 pg (27-33); Mean Corpuscular Hgb Conc 32.6 g/dL (31-36); Mean Corpuscular Volume 98.4 fL (80-97); Mean Platelet Volume 7.7 fL (7.5-11.2); Platelet Count 516 10^3/uL (150-450); Red Blood Count 2.27 10^6/uL (3.63-4.92); Red Cell Distribution Width 14.8 % (12-17); White Blood Count 13.3 10^3/uL (3.8-11.8)
[2023-12-03] MEDS: Polyethylene Glycol 3350 17 GM PACKET PO SCH (10:06)
[2023-12-03] MEDS: HYDROcodone/ACETAMIN 5/325 mg TAB PO SCH (11:48)
[2023-12-03] MEDS: HYDROmorphone 0.5 MG/0.5 ML SYRINGE IV SLOW PU PRN (15:05)
[2023-12-04 07:10] LABS: ABS Basophils 0.1 10^3/uL (0.0-0.1); ABS Eosinophils 0.4 10^3/uL (0.0-0.5); ABS Lymphocytes 2.8 10^3/uL (1.0-4.8); ABS Neutrophils 8.6 10^3/uL (1.5-7.6); Eosinophil % 2.8 %; Hematocrit 23.6 % (35-45); Hemoglobin 7.6 g/dL (11.5-14.3); Lymphocyte % 21.6 %; Mean Corpuscular Hemoglobin 31.7 pg (27-33); Mean Corpuscular Hgb Conc 32.2 g/dL (31-36); Mean Corpuscular Volume 98.3 fL (80-97); Mean Platelet Volume 7.8 fL (7.5-11.2); Platelet Count 508 10^3/uL (150-450); Red Cell Distribution Width 15.1 % (12-17); White Blood Count 12.7 10^3/uL (3.8-11.8)
[2023-12-04 07:24] LABS: Calcium 7.5 mg/dL (8.6-10.3); Creatinine, Serum 1.54 mg/dL (0.51-0.95); Magnesium 1.7 mg/dL (1.9-2.7); eGFR CKD-EPI 33.7 (>60)
[2023-12-04 13:58] VITALS: BP 120/67
[2023-12-04 19:26] LABS: Calprotectin 88.7 mcg/g
== END 2023-12-04 15:25 | DRG 871 ==
LOC: ED 07:03 → SUATTDRO 12:55 → EDHOLD 12:55 → MED 20:45
PROVIDERS: ADMIT Hospitalist; ATTEND Internal Medicine
PROC: O.GIEGD (2023-11-29 13:20)

== ENCOUNTER 2023-11-27 10:26 | Inpatient (IN) ==
[2023-12-04] MEDS ORDERED: Magnesium Hydroxide LIQ 30 ML UDC PO PRN ×2 (17:03→22:56)
[2023-12-04] MEDS: HYDROcodone/ACETAMIN 5/325 mg TAB PO PRN (17:27)
[2023-12-04] MEDS: Senna TAB 8.6 mg TAB PO PRN (21:19)
[2023-12-05 06:39] LABS: ABS Basophils 0.1 10^3/uL (0.0-0.1); ABS Eosinophils 0.3 10^3/uL (0.0-0.5); ABS Lymphocytes 2.5 10^3/uL (1.0-4.8); ABS Monocytes 0.8 10^3/uL (0.0-0.9); ABS Neutrophils 7.1 10^3/uL (1.5-7.6); ABS Nucleated RBC 0.01 10^3/ul; Eosinophil % 2.8 %; Hematocrit 23.6 % (35-45); Hemoglobin 7.8 g/dL (11.5-14.3); Mean Corpuscular Hemoglobin 32.3 pg (27-33); Mean Corpuscular Hgb Conc 32.9 g/dL (31-36); Mean Platelet Volume 7.7 fL (7.5-11.2); Nucleated Red Blood Cells % 0.1 %/100WBC (0.0-0.8); Platelet Count 506 10^3/uL (150-450); Red Blood Count 2.41 10^6/uL (3.63-4.92); Red Cell Distribution Width 14.7 % (12-17); White Blood Count 10.8 10^3/uL (3.8-11.8)
[2023-12-05 07:25] LABS: Albumin 1.8 g/dL (3.2-5.2); Albumin/Globulin Ratio 0.6 (1-3); Calcium 7.7 mg/dL (8.6-10.3); Creatinine, Serum 1.43 mg/dL (0.51-0.95); Globulin 3.2 g/dL (2-4); Potassium 5.4 mmol/L (3.5-5.0); Total Bilirubin 0.3 mg/dL (0.2-1.0); eGFR CKD-EPI 36.8 (>60)
[2023-12-05] MEDS: Polyethylene Glycol 3350 17 GM PACKET PO SCH (07:45)
[2023-12-05] MEDS ORDERED: Lactulose 30 ml UDC PO PRN (21:18)
[2023-12-06] MEDS: HYDROcodone/ACETAMIN 5/325 mg TAB PO PRN (19:33)
[2023-12-08 05:06] LABS: ABS Basophils 0.1 10^3/uL (0.0-0.1); ABS Eosinophils 0.6 10^3/uL (0.0-0.5); ABS Lymphocytes 3.1 10^3/uL (1.0-4.8); ABS Monocytes 0.9 10^3/uL (0.0-0.9); ABS Neutrophils 7.1 10^3/uL (1.5-7.6); Eosinophil % 5.3 %; Hematocrit 23.9 % (35-45); Hemoglobin 7.7 g/dL (11.5-14.3); Lymphocyte % 26.1 %; Mean Corpuscular Hemoglobin 31.8 pg (27-33); Mean Corpuscular Hgb Conc 32.4 g/dL (31-36); Mean Corpuscular Volume 98.2 fL (80-97); Platelet Count 381 10^3/uL (150-450); Red Blood Count 2.43 10^6/uL (3.63-4.92); Red Cell Distribution Width 14.9 % (12-17); White Blood Count 11.7 10^3/uL (3.8-11.8)
[2023-12-08 05:40] LABS: Calcium 7.6 mg/dL (8.6-10.3); Creatinine, Serum 1.46 mg/dL (0.51-0.95); Potassium 5.1 mmol/L (3.5-5.0); eGFR CKD-EPI 35.9 (>60)
[2023-12-11] MEDS: CMCS:Mirabegron 25 mg ER TAB (NF) PO SCH (11:02)
[2023-12-12 06:22] LABS: ABS Eosinophils 0.4 10^3/uL (0.0-0.5); ABS Lymphocytes 1.7 10^3/uL (1.0-4.8); ABS Monocytes 0.7 10^3/uL (0.0-0.9); ABS Neutrophils 9.7 10^3/uL (1.5-7.6); ABS Nucleated RBC 0.01 10^3/ul; Eosinophil % 3.3 %; Hemoglobin 7.5 g/dL (11.5-14.3); Lymphocyte % 13.6 %; Mean Corpuscular Hgb Conc 32.6 g/dL (31-36); Mean Platelet Volume 8.1 fL (7.5-11.2); Platelet Count 418 10^3/uL (150-450); Red Blood Count 2.34 10^6/uL (3.63-4.92); Red Cell Distribution Width 15.2 % (12-17); White Blood Count 12.6 10^3/uL (3.8-11.8)
[2023-12-12 06:42] LABS: Albumin/Globulin Ratio 0.6 (1-3); Creatinine, Serum 1.94 mg/dL (0.51-0.95); Globulin 3.3 g/dL (2-4); Potassium 5.8 mmol/L (3.5-5.0); Total Bilirubin 0.3 mg/dL (0.2-1.0); Total Protein 5.3 g/dL (6.4-8.9); eGFR CKD-EPI 25.6 (>60)
[2023-12-12 10:04] LABS: C Reactive Protein 155.63 mg/L (<8.01)
[2023-12-12] MEDS ORDERED: Zosyn per Pharmacy NOTE FOLLOW UP SCH (12:00)
[2023-12-12] MEDS: SODIUM ZIRCONIUM CYCLOSILICATE 10 GM PACKET PO ONE (12:26)
[2023-12-12] MEDS: ZOSYN 3.375 GM x ONE DOSE over 30 miuntes IV (13:39)
[2023-12-12 14:12] LABS: Urine Appearance Extra Turbid; Urine Bilirubin Negative (Negative); Urine Blood 3+ (Negative); Urine Glucose Negative (Negative); Urine Ketones Negative (Negative); Urine Nitrite 2+ (Negative); Urine Protein 1+ (>=30 mg/dL) (Negative); Urine Specific Gravity 1.011 (1.002-1.030); Urine Urobilinogen Negative (Negative); Urine pH 5.5 (5.0-8.0)
[2023-12-12 14:19] LABS: Urine Bacteria Absent /HPF (Absent); Urine Red Blood Cell 3+(>10/hpf) /HPF (0-Trace); Urine White Blood Cell 3+(>20/hpf) /HPF (0-Trace)
[2023-12-12 14:20] LABS: Urine Color Light-Yellow
[2023-12-12] MEDS: ZOSYN 3.375 GM Q8H per EXTENDED INFUSION IV SCH (18:06)
[2023-12-13 07:02] LABS: ABS Eosinophils 0.2 10^3/uL (0.0-0.5); ABS Lymphocytes 1.9 10^3/uL (1.0-4.8); ABS Monocytes 0.8 10^3/uL (0.0-0.9); ABS Neutrophils 8.7 10^3/uL (1.5-7.6); Eosinophil % 2.1 %; Hematocrit 23.8 % (35-45); Hemoglobin 7.8 g/dL (11.5-14.3); Lymphocyte % 16.5 %; Mean Corpuscular Hemoglobin 32.1 pg (27-33); Mean Corpuscular Hgb Conc 32.8 g/dL (31-36); Mean Corpuscular Volume 97.8 fL (80-97); Mean Platelet Volume 7.5 fL (7.5-11.2); Platelet Count 418 10^3/uL (150-450); Red Blood Count 2.43 10^6/uL (3.63-4.92); Red Cell Distribution Width 14.6 % (12-17); White Blood Count 11.6 10^3/uL (3.8-11.8)
[2023-12-13 07:45] LABS: Calcium 7.6 mg/dL (8.6-10.3); Creatinine, Serum 1.74 mg/dL (0.51-0.95); Potassium 4.7 mmol/L (3.5-5.0); eGFR CKD-EPI 29.1 (>60)
[2023-12-13] MEDS: Ondansetron ODT 4 mg TAB 4 MG TAB SL PRN (10:21)
[2023-12-14 09:08] LABS: Calcium 8.2 mg/dL (8.6-10.3); Creatinine, Serum 1.99 mg/dL (0.51-0.95); Potassium 4.8 mmol/L (3.5-5.0); eGFR CKD-EPI 24.8 (>60)
[2023-12-14] MEDS: Mirabegron 25 mg ER TAB (NF) PO SCH (10:27)
[2023-12-14] MEDS: NS 0.9% 1000 ml BAG 1,000 ML IV SCH (14:10)
[2023-12-15] MEDS ORDERED: Polyethylene Glycol 3350 17 GM PACKET PO PRN (07:58)
[2023-12-15 08:45] LABS: Calcium 7.7 mg/dL (8.6-10.3); Creatinine, Serum 1.74 mg/dL (0.51-0.95); Potassium 4.5 mmol/L (3.5-5.0); eGFR CKD-EPI 29.1 (>60)
[2023-12-16 13:54] LABS: Anion Gap 11 mmol/L (2-16); Blood Urea Nitrogen 35 mg/dL (6-24); C Reactive Protein 43.08 mg/L (<8.01); CO2 Carbon Dioxide 20 mmol/L (22-32); Calcium 7.8 mg/dL (8.6-10.3); Chloride 107 mmol/L (101-111); Creatinine, Serum 1.76 mg/dL (0.51-0.95); Glucose 90 mg/dL (70-100); Potassium 4.4 mmol/L (3.5-5.0); Rheumatoid Factor < 10 IU/mL (<15); Sodium 138 mmol/L (135-145); eGFR CKD-EPI 28.7 (>60)
[2023-12-16 14:27] LABS: Hepatitis B Surface Antigen Nonreactive (Nonreactive)
[2023-12-16 14:28] LABS: HIV 4th Generation Nonreactive (Nonreactive)
[2023-12-16 14:44] LABS: Hepatitis B Surface Ab Not Immune (Immune)
[2023-12-16 14:45] LABS: Hepatitis C Antibody Negative (Negative)
[2023-12-17 06:41] LABS: ABS Basophils 0.1 10^3/uL (0.0-0.1); ABS Eosinophils 0.3 10^3/uL (0.0-0.5); ABS Lymphocytes 3.1 10^3/uL (1.0-4.8); ABS Monocytes 0.8 10^3/uL (0.0-0.9); ABS Neutrophils 7.8 10^3/uL (1.5-7.6); Eosinophil % 2.6 %; Hematocrit 22.7 % (35-45); Hemoglobin 7.4 g/dL (11.5-14.3); Lymphocyte % 25.6 %; Mean Corpuscular Hgb Conc 32.4 g/dL (31-36); Mean Corpuscular Volume 98.5 fL (80-97); Mean Platelet Volume 7.2 fL (7.5-11.2); Platelet Count 402 10^3/uL (150-450); Red Blood Count 2.31 10^6/uL (3.63-4.92)
[2023-12-17 07:30] LABS: C Reactive Protein 24.72 mg/L (<8.01); Calcium 7.4 mg/dL (8.6-10.3); Creatinine, Serum 1.63 mg/dL (0.51-0.95); Potassium 4.4 mmol/L (3.5-5.0); eGFR CKD-EPI 31.5 (>60)
[2023-12-18] MEDS: HYDROcodone/ACETAMIN 5/325 mg TAB PO PRN (13:29)
[2023-12-18 14:59] LABS: Complement C3 104 mg/dL (75 - 175)
[2023-12-18 15:19] LABS: Proteinase 3 <0.2 U
[2023-12-18 16:53] LABS: Lambda Free Light Chain, S 5.92 mg/dL
[2023-12-19 06:58] LABS: ABS Basophils 0.1 10^3/uL (0.0-0.1); ABS Eosinophils 0.5 10^3/uL (0.0-0.5); ABS Lymphocytes 3.2 10^3/uL (1.0-4.8); ABS Monocytes 1.1 10^3/uL (0.0-0.9); ABS Neutrophils 11.3 10^3/uL (1.5-7.6); Eosinophil % 3.2 %; Hemoglobin 7.5 g/dL (11.5-14.3); Lymphocyte % 19.7 %; Mean Corpuscular Hemoglobin 32.3 pg (27-33); Mean Corpuscular Hgb Conc 32.8 g/dL (31-36); Mean Corpuscular Volume 98.4 fL (80-97); Mean Platelet Volume 7.4 fL (7.5-11.2); Platelet Count 359 10^3/uL (150-450); Red Blood Count 2.33 10^6/uL (3.63-4.92); Red Cell Distribution Width 15.7 % (12-17); White Blood Count 16.2 10^3/uL (3.8-11.8)
[2023-12-19 07:29] LABS: Albumin 2.2 g/dL (3.2-5.2); Albumin/Globulin Ratio 0.7 (1-3); Calcium 7.7 mg/dL (8.6-10.3); Creatinine, Serum 1.62 mg/dL (0.51-0.95); Potassium 4.3 mmol/L (3.5-5.0); Total Bilirubin 0.3 mg/dL (0.2-1.0); Total Protein 5.2 g/dL (6.4-8.9); eGFR CKD-EPI 31.7 (>60)
[2023-12-19 12:00] LABS: C-ANCA Negative (Negative); P-ANCA Negative (Negative)
[2023-12-19 15:05] LABS: PLA2R, Immunofluorescence, S Negative (Negative)
[2023-12-20 04:22] VITALS: BP 146/81
[2023-12-20 07:11] LABS: ABS Eosinophils 0.6 10^3/uL (0.0-0.5); ABS Lymphocytes 3.8 10^3/uL (1.0-4.8); ABS Monocytes 1.1 10^3/uL (0.0-0.9); ABS Neutrophils 12.9 10^3/uL (1.5-7.6); ABS Nucleated RBC 0.01 10^3/ul; Eosinophil % 3.3 %; Hematocrit 24.9 % (35-45); Hemoglobin 8.1 g/dL (11.5-14.3); Lymphocyte % 20.5 %; Mean Corpuscular Hemoglobin 32.4 pg (27-33); Mean Corpuscular Hgb Conc 32.6 g/dL (31-36); Mean Corpuscular Volume 99.5 fL (80-97); Mean Platelet Volume 7.7 fL (7.5-11.2); Platelet Count 367 10^3/uL (150-450); Red Cell Distribution Width 15.9 % (12-17); White Blood Count 18.4 10^3/uL (3.8-11.8)
== END 2023-12-20 14:10 | DRG 871 ==
LOC: PMRU 12-04 15:44
PROVIDERS: ADMIT Physical Medicine & Rehabilitation; ATTEND Physical Medicine & Rehabilitation